=== PATIENT | female | born 1990 | race Caucasian/White ===

== ENCOUNTER 2018-02-08 22:32 | Emergency (ER) | payer SELFPAY ==
[~2018-02-08] VITALS: Ht 160 cm; Wt 65.8 kg
[~2018-02-08 22:32] MED LIST: ALBU90OI INH; Atrovent Inha12.9 GM INH; BUDE6HFA INH; Bactrim Ds Tab1 EACH PO; COLD MEDICATION; CYCL10 PO; HYDACE5 PO; HYDACE5325 PO; IMPLANON; LEVO750 PO; MULVITMINE PO; PENVK500 PO; PRED20 PO; Prednisone20 MG PO; Prednisone50 MG PO; RXHYD5325 PO
[2018-02-09] MEDS ORDERED: IBUP800 PO (00:44)
[2018-02-09] MEDS ORDERED: CEPH500 PO (00:44)
[2018-02-09] MEDS ORDERED: Bactrim Ds Tab1 EACH PO (00:46)
== END 2018-02-09 01:10 | disposition home or self-care (01) ==
LOC: ER 22:32
DX: L03.032 Cellulitis of left toe (principal); J44.9 Chronic obstructive pulmonary disease, unspecified; Z79.2 Long term (current) use of antibiotics; Z87.891 Personal history of nicotine dependence
CPT/HCPCS: J1885

== ENCOUNTER 2018-03-08 10:06 | Emergency (ER) | payer MEDICAID ==
[~2018-03-08] VITALS: Ht 162.6 cm; Wt 74.8 kg
[~2018-03-08 10:06] MED LIST changes: +CEPH500 PO; +IBUP800 PO
[2018-03-08] MEDS ORDERED: Vibramycin100 MG PO (11:18)
== END 2018-03-08 11:30 | disposition home or self-care (01) ==
LOC: ER 10:06
DX: S60.351A Superficial foreign body of right thumb, initial encounter (principal); J44.9 Chronic obstructive pulmonary disease, unspecified; Z87.891 Personal history of nicotine dependence; W45.8XXA Other foreign body or object entering through skin, initial encounter
CPT/HCPCS: 64450; 99282

== ENCOUNTER 2018-03-13 11:49 | Emergency (ER) | payer MEDICAID ==
[~2018-03-13] VITALS: Ht 162.6 cm; Wt 64.4 kg
[~2018-03-13 11:49] MED LIST changes: +Vibramycin100 MG PO
[2018-03-13 14:23] LABS: BASOPHILS ABSOLUTE AUTO 0.02 K/mm3 (0.00-0.23); BASOPHILS PERCENT AUTO 0 % (0-2); EOSINOPHILS ABSOLUTE AUTO 0.08 K/mm3 (0.00-0.68); EOSINOPHILS PERCENT AUTO 1 % (0-6); Hematocrit 41.3 % (33.0-51.0); Hemoglobin 13.6 g/dL (11.5-16.0); IMMATURE GRAN ABSOLUTE AUTO 0.02 K/mm3 (0.00-0.10); IMMATURE GRAN PERCENT AUTO 0 % (0-1); LYMPHOCYTES ABSOLUTE AUTO 1.86 K/mm3 (0.84-5.20); LYMPHOCYTES PERCENT AUTO 18 % (21-46); MONOCYTES ABSOLUTE AUTO 0.46 K/mm3 (0.16-1.47); MONOCYTES PERCENT AUTO 5 % (4-13); Mean Corpuscular HGB Conc 32.9 g/dL (31.5-36.5); Mean Corpuscular Volume 91 fL (80-100); Mean Platelet Volume 9.9 fL (9.1-12.4); NEUTROPHILS ABSOLUTE AUTO 7.69 K/mm3 (1.96-9.15); NEUTROPHILS PERCENT AUTO 76 % (41-73); Platelet Count 313 K/mm3 (150-400); RDW Coefficient Variation 12.4 % (11.7-14.2); RDW Standard Deviation 41.5 fL (35.1-46.3); Red Blood Cell Count 4.54 M/mm3 (3.80-5.20); White Blood Cell Count 10.13 K/mm3 (4.00-11.30)
[2018-03-13 14:35] LABS: Alanine Aminotransfer (ALT/SGP 26 U/L (12-78); Albumin, Blood 3.4 g/dL (3.4-5.0); Albumin/Globulin Ratio 0.7 (0.8-1.8); Alk Phos 107 U/L (50-136); Anion Gap 6 mmol/L (6-16); Aspartate Aminotrans (AST/SGOT 21 U/L (12-37); Bilirubin, Total 0.3 mg/dL (0.1-1.0); Blood Urea Nitrogen 6 mg/dL (8-24); Bun/Creatinine Ratio 10.9 (12.0-20.0); CO2, Blood 28 mmol/L (21-32); Chloride, Blood 105 mmol/L (98-108); Creatinine, Blood 0.55 mg/dL (0.40-1.00); Globulin, Blood 5.2 g/dL (2.2-4.0); Glomerular Filtration Rate >60 (60-); Glucose, Blood 101 mg/dL (70-99); Potassium, Blood 3.6 mmol/L (3.5-5.5); Sodium, Blood 139 mmol/L (136-145); Total Protein, Blood 8.6 g/dL (6.4-8.2)
[2018-03-13] MEDS ORDERED: Keflex500 MG PO (15:44)
[2018-03-13] MEDS ORDERED: Zofran8 MG PO (15:44)
== END 2018-03-13 16:08 | disposition home or self-care (01) ==
LOC: ER 11:49
DX: L03.011 Cellulitis of right finger (principal); J44.9 Chronic obstructive pulmonary disease, unspecified; J45.909 Unspecified asthma, uncomplicated; Z87.891 Personal history of nicotine dependence
CPT/HCPCS: 36415; 80053; 81025; 83690; 84702; 85025; J2405; J7120

== ENCOUNTER 2019-07-09 16:23 | Observation (INO) | payer OTHER ==
[~2019-07-09] VITALS: Ht 167.6 cm; Wt 70.8 kg
[~2019-07-09 16:23] MED LIST changes: +Keflex500 MG PO; +Zofran8 MG PO
[2019-07-09 16:45] LABS: Calcium, Ionized (POC) 1.04 mmol/L (1.10-1.46); Chloride (POC) 102 mmol/L (98-108); Creatinine (POC) 0.7 mg/dL (0.6-1.0); Glucose (ISTAT POC) 174 mg/dL (70-99); Hemoglobin (POC) 12.6 g/dL (12.0-16.0); Potassium (POC) 2.3 mmol/L (3.5-5.5); Sodium (POC) 140 mmol/L (135-148); Total CO2 (POC) 19 mmol/L (21-32)
[2019-07-09 16:52] LABS: BASOPHILS ABSOLUTE AUTO 0.02 K/mm3 (0.00-0.23); BASOPHILS PERCENT AUTO 0 % (0-2); EOSINOPHILS ABSOLUTE AUTO 0.12 K/mm3 (0.00-0.68); EOSINOPHILS PERCENT AUTO 1 % (0-6); Hematocrit 36.9 % (33.0-51.0); Hemoglobin 12.6 g/dL (11.5-16.0); IMMATURE GRAN ABSOLUTE AUTO 0.04 K/mm3 (0.00-0.10); IMMATURE GRAN PERCENT AUTO 0 % (0-1); LYMPHOCYTES ABSOLUTE AUTO 1.74 K/mm3 (0.84-5.20); LYMPHOCYTES PERCENT AUTO 13 % (21-46); MONOCYTES ABSOLUTE AUTO 0.85 K/mm3 (0.16-1.47); MONOCYTES PERCENT AUTO 6 % (4-13); Mean Corpuscular HGB Conc 34.1 g/dL (31.5-36.5); Mean Corpuscular Volume 91 fL (80-100); Mean Platelet Volume 10.1 fL (9.1-12.4); NEUTROPHILS ABSOLUTE AUTO 10.88 K/mm3 (1.96-9.15); NEUTROPHILS PERCENT AUTO 80 % (41-73); Platelet Count 247 K/mm3 (150-400); RDW Coefficient Variation 12.4 % (11.7-14.2); RDW Standard Deviation 40.8 fL (35.1-46.3); Red Blood Cell Count 4.07 M/mm3 (3.80-5.20); White Blood Cell Count 13.65 K/mm3 (4.00-11.30)
[2019-07-09 17:20] LABS: Troponin I <0.015 ng/mL (0.000-0.040)
[2019-07-09 17:36] LABS: Alanine Aminotransfer (ALT/SGP 27 U/L (12-78); Albumin, Blood 3.6 g/dL (3.4-5.0); Albumin/Globulin Ratio 0.9 (0.8-1.8); Alk Phos 88 U/L (50-136); Anion Gap 12 mmol/L (6-16); Aspartate Aminotrans (AST/SGOT 21 U/L (12-37); Bilirubin, Total 0.2 mg/dL (0.1-1.0); Blood Urea Nitrogen 10 mg/dL (8-24); Bun/Creatinine Ratio 14.4 (12.0-20.0); CO2, Blood 20 mmol/L (21-32); Calcium, Blood 8.3 mg/dL (8.5-10.1); Chloride, Blood 105 mmol/L (98-108); Creatinine, Blood 0.69 mg/dL (0.40-1.00); Globulin, Blood 3.9 g/dL (2.2-4.0); Glomerular Filtration Rate >60 (60-); Glucose, Blood 172 mg/dL (70-99); Sodium, Blood 137 mmol/L (136-145); Total Protein, Blood 7.5 g/dL (6.4-8.2)
[2019-07-09 17:37] LABS: Potassium, Blood 2.3 mmol/L (3.5-5.5)
[2019-07-09 18:06] LABS: U Amphetamine Screen Not Detected; U Barbituate Screen Not Detected; U Benzodiazapine Screen DETECTED; U Buprenorphine Screen Not Detected; U Cannabinoids Screen Not Detected; U Cocaine Screen Not Detected; U Methadone Screen Not Detected; U Methamphetamine Screen Not Detected; U Opiates Screen Not Detected; U Oxycodone Screen Not Detected; U Phencyclidine Screen Not Detected; U Propoxyphene Screen Not Detected
[2019-07-09] MEDS ORDERED: [UNRECOGNIZED DRUG - CODE] INH (18:30)
[2019-07-09] MEDS ORDERED: [UNRECOGNIZED DRUG - CODE] INH (18:31)
--- NOTE | 2019-07-10 03:53 | NUR ---
SHIFT SUMMARY PT CAME TO HOSPITAL WITH CHEST PAIN AND TACHYCARDIA. LAB RESULTS SHOWED HYPOKALEMIA AND PT IS RECIEVING POTASSIUM CHLORIDE IV (SEE EMAR). PT IS INDEPENDENT AND USES CALL LIGHT WHEN NEEDED. SHE HAS A HISTORY OF METH USE HER LAST DAY OF USE WAS 70 DAYS AGO AND SHE WAS JUST RELEASED FROM [facility]. PT REFUSES TO WEAR THE ANTI-EMBOLIC STOCKINGS, BUT WALKS AND MOVES INDEPENDTLY.PT HAS TELEMETRY ON AND WILL CONTINUE TO MONITOR.
[2019-07-10 09:22] LABS: Anion Gap 4 mmol/L (6-16); Blood Urea Nitrogen 6 mg/dL (8-24); Bun/Creatinine Ratio 10.2 (12.0-20.0); CO2, Blood 27 mmol/L (21-32); Chloride, Blood 110 mmol/L (98-108); Creatinine, Blood 0.59 mg/dL (0.40-1.00); Glomerular Filtration Rate >60 (60-); Glucose, Blood 101 mg/dL (70-99); Magnesium, Blood 1.8 mg/dL (1.6-2.4); Potassium, Blood 3.7 mmol/L (3.5-5.5); Sodium, Blood 141 mmol/L (136-145)
[2019-07-10] MEDS ORDERED: BUDE10.22 INH (11:06)
[2019-07-10] MEDS ORDERED: ALBU90OI INH (11:07)
--- NOTE | 2019-07-10 12:12 | NUR ---
DISCHARGE NOTE- PT DISCHARGED HOME. PT RECIEVED VERBAL AND WRITTEN DISCHARGE INSTRUCTIONS AND ACKNOWLEDGED UNDERSTANDING OF THEM. PT IS AWARE OF FOLLOW UP APPOINTMENT SCHEDULED Jul AT 1045 WITH HER NEW PCP. PT ACKNOWLEDGED THAT IF SYMPTOMS RETURN SHE SHOULD COME BACK TO THE ER. TELE AND BOTH IV'S DC'D PRIOR TO PT DISCHARGE.
== END 2019-07-10 11:50 | disposition home or self-care (01) ==
LOC: ER 16:23 → MEDS 16:24 → ENPENDDIS 07-10 10:30 → MEDS 07-10 11:50
PROVIDERS: Emergency Medicine; ADMIT Internal Medicine
DX: R07.9 Chest pain, unspecified (principal); E87.6 Hypokalemia; J44.9 Chronic obstructive pulmonary disease, unspecified; F41.9 Anxiety disorder, unspecified; F17.210 Nicotine dependence, cigarettes, uncomplicated; Z88.0 Allergy status to penicillin; Z79.51 Long term (current) use of inhaled steroids; Z86.59 Personal history of other mental and behavioral disorders
CPT/HCPCS: 36415; 71045; 80047; 80048; 80053; 83735; 84484; 85014; 85025; 93005; 93010; 94640; 94760; 96361; 96365; 96366; 96367; 99285-25; G0378; J0153; J3480; J7030; J7120

== ENCOUNTER 2019-12-11 22:05 | Emergency (ER) | payer OTHER ==
[~2019-12-11] VITALS: Ht 162.6 cm; Wt 72.6 kg
[~2019-12-11 22:05] MED LIST changes: +BUDE10.22 INH; +[UNRECOGNIZED DRUG - CODE] INH; +[UNRECOGNIZED DRUG - CODE] INH
[2019-12-12] MEDS ORDERED: Bactrim Ds Tab1 EACH PO (01:12)
[2019-12-12] MEDS ORDERED: Keflex500 MG PO (01:12)
[2019-12-12] MEDS ORDERED: Diflucan150 MG PO (01:25)
== END 2019-12-12 01:27 | disposition home or self-care (01) ==
LOC: ER 22:05
DX: L02.414 Cutaneous abscess of left upper limb (principal); L03.114 Cellulitis of left upper limb; F15.10 Other stimulant abuse, uncomplicated; J44.9 Chronic obstructive pulmonary disease, unspecified; F41.9 Anxiety disorder, unspecified; F17.200 Nicotine dependence, unspecified, uncomplicated; Z23 Encounter for immunization; Z88.0 Allergy status to penicillin; Z79.899 Other long term (current) drug therapy
CPT/HCPCS: 10060; 90471; 90714; 99282-25; A9270-GY

== ENCOUNTER 2019-12-26 12:03 | Emergency (ER) | payer OTHER ==
[~2019-12-26] VITALS: Ht 162.6 cm; Wt 72.6 kg
[~2019-12-26 12:03] MED LIST changes: +Diflucan150 MG PO
[2019-12-26] MEDS ORDERED: Zithromax250 MG PO (14:47)
[2019-12-26] MEDS ORDERED: Ventolin/Prove6.7 GM INH (14:47)
== END 2019-12-26 14:57 | disposition home or self-care (01) ==
LOC: ER 12:03
DX: J18.9 Pneumonia, unspecified organism (principal); J44.9 Chronic obstructive pulmonary disease, unspecified; F17.210 Nicotine dependence, cigarettes, uncomplicated; Z88.0 Allergy status to penicillin; Z79.51 Long term (current) use of inhaled steroids
CPT/HCPCS: 71046; 99283-25

== ENCOUNTER 2023-09-21 21:35 | Emergency (ER) | payer OTHER ==
[~2023-09-21] VITALS: Ht 162.6 cm; Wt 79.4 kg
[~2023-09-21 21:35] MED LIST changes: +IBUP600 PO; +MIRT15 PO; +Ventolin/Prove6.7 GM INH; +Zithromax250 MG PO
[2023-09-21 21:46] VITALS: BP 126/76
== END 2023-09-21 21:56 | disposition home or self-care (01) ==
LOC: ER 21:35
DX: S60.445A External constriction of left ring finger, initial encounter (principal); J44.9 Chronic obstructive pulmonary disease, unspecified; W49.04XA Ring or other jewelry causing external constriction, initial encounter; Z88.0 Allergy status to penicillin; Z79.899 Other long term (current) drug therapy; Z87.891 Personal history of nicotine dependence
CPT/HCPCS: 99282

== ENCOUNTER 2023-10-17 14:04 | Emergency (ER) | payer OTHER ==
[~2023-10-17] VITALS: Ht 162.6 cm; Wt 81.7 kg
[2023-10-17 15:20] LABS: BASOPHILS ABSOLUTE AUTO 0.08 K/mm3 (0.00-0.23); BASOPHILS PERCENT AUTO 1 % (0-2); EOSINOPHILS ABSOLUTE AUTO 1.08 K/mm3 (0.00-0.68); EOSINOPHILS PERCENT AUTO 15 % (0-6); Hematocrit 43.8 % (33.0-51.0); Hemoglobin 13.9 g/dL (11.5-16.0); IMMATURE GRAN ABSOLUTE AUTO 0.01 K/mm3 (0.00-0.10); IMMATURE GRAN PERCENT AUTO 0 % (0-1); LYMPHOCYTES PERCENT AUTO 23 % (21-46); MONOCYTES ABSOLUTE AUTO 0.65 K/mm3 (0.16-1.47); MONOCYTES PERCENT AUTO 9 % (4-13); Mean Corpuscular HGB 30.4 pg (26.0-34.0); Mean Corpuscular HGB Conc 31.7 g/dL (31.5-36.5); Mean Corpuscular Volume 96 fL (80-100); Mean Platelet Volume 10.3 fL (9.1-12.4); NEUTROPHILS ABSOLUTE AUTO 3.95 K/mm3 (1.96-9.15); NEUTROPHILS PERCENT AUTO 53 % (41-73); Platelet Count 228 K/mm3 (150-400); RDW Coefficient Variation 13.2 % (11.7-14.2); RDW Standard Deviation 46.7 fL (35.1-46.3); Red Blood Cell Count 4.57 M/mm3 (3.80-5.20); White Blood Cell Count 7.47 K/mm3 (4.00-11.30)
[2023-10-17 15:39] LABS: Albumin, Blood 3.5 g/dL (3.4-5.0); Albumin/Globulin Ratio 0.7 (0.8-1.8); Bilirubin, Total 0.7 mg/dL (0.1-1.0); Bun/Creatinine Ratio 13.6 (12.0-20.0); Calcium, Blood 8.5 mg/dL (8.5-10.1); Creatinine, Blood 0.66 mg/dL (0.40-1.00); Globulin, Blood 4.8 g/dL (2.2-4.0); Potassium, Blood 3.9 mmol/L (3.5-5.5); Total Protein, Blood 8.3 g/dL (6.4-8.2)
[2023-10-17] MEDS ORDERED: Prednisone20 MG PO (15:59)
[2023-10-17 16:00] VITALS: BP 119/79
== END 2023-10-17 16:23 | disposition home or self-care (01) ==
LOC: ER 14:04
PROVIDERS: Physician Assistant
DX: J45.901 Unspecified asthma with (acute) exacerbation (principal); J44.9 Chronic obstructive pulmonary disease, unspecified; Z87.891 Personal history of nicotine dependence; Z79.52 Long term (current) use of systemic steroids; Z79.899 Other long term (current) drug therapy; Z88.0 Allergy status to penicillin
CPT/HCPCS: 71046; 80053; 84484; 84703; 85025; 85379; 93005; 93010; 99285-25; J7512

== ENCOUNTER → 2023-11-08 | Outpatient (CLI) | payer OTHER ==
[2023-11-12 12:29] LABS: APTIMA MEDIA TYPE Urine; C. TRACHOMATIS BY TMA Negative (Negative); N. GONORRHOEAE BY TMA Negative (Negative); SPECIMEN SOURCE Urine; T. VAGINALIS BY TMA Negative (Negative)
== END ==
LOC: LAB 12:12 → LAB SHORT 12:12
PROVIDERS: Student in an Organized Health Care Education/Training Program
DX: R82.90 Unspecified abnormal findings in urine (principal); Z91.89 Other specified personal risk factors, not elsewhere classified
CPT/HCPCS: 87086

== ENCOUNTER 2024-02-27 06:15 | Emergency (ER) | payer OTHER ==
[~2024-02-27] VITALS: Ht 165.1 cm; Wt 77.6 kg
[2024-02-27] MEDS ORDERED: ALBU90OI INH ×2 (06:33→07:50)
[2024-02-27] MEDS ORDERED: PRAZ1 PO (06:34)
[2024-02-27] MEDS ORDERED: Dexamethasone Sod Phos 10 MG/ML 1ML VIAL PO ONE (06:40)
[2024-02-27] MEDS ORDERED: Albuterol 2.5 MG/3 ML VIAL INH SCH (06:40)
[2024-02-27] MEDS ORDERED: PRED20 PO (07:50)
[2024-02-27] MEDS ORDERED: SYMBICORT 160-4.6 GM INH (07:50)
[2024-02-27 08:15] VITALS: BP 128/87
== END 2024-02-27 08:31 | disposition home or self-care (01) ==
LOC: ER 06:15
DX: J44.1 Chronic obstructive pulmonary disease with (acute) exacerbation (principal); F17.200 Nicotine dependence, unspecified, uncomplicated; Z87.891 Personal history of nicotine dependence
CPT/HCPCS: 71045; 94644; 94664; 99285-25; J1100